=== PATIENT | female | born 1995 | race Caucasian/White ===

== ENCOUNTER → 2018-06-20 | Outpatient (CLI) | payer BC ==
--- NOTE | 2018-06-20 13:51 | RAD ---
ABDOMEN LTD dated 06/21/2018 1:02 AM. Comparison: None Clinical Indication: RUQ PAIN, NAUSEA . Findings: The liver is homogeneous in echotexture with no evidence of focal hepatic mass. Intrahepatic and extra hepatic biliary ducts are normal in caliber. The common bile duct measures 2 mm. The gallbladder is normal in size and echogenicity without gallbladder wall thickening or pericholecystic fluid. No gallstones are seen. The right kidney measures 9.2 cm in length. No hydronephrosis. Left kidney was not imaged Limited visualized portions of the pancreas, aorta and IVC are unremarkable. No significant ascites. IMPRESSION: Negative right upper quadrant ultrasound. Electronically signed by: Luis Felipe Ramirez MD (06/20/2018 1:48 PM) [id number]
== END | disposition home or self-care (01) ==
LOC: US 12:39
PROVIDERS: ATTEND Nurse Practitioner Family
DX: R10.11 Right upper quadrant pain (principal); R11.0 Nausea
CPT/HCPCS: 76705

== ENCOUNTER → 2019-03-27 | Outpatient (CLI) | payer BC ==
--- NOTE | 2019-03-27 16:09 | RAD ---
2 view abdominal series and PA view chest x-ray Clinical indications: Abdominal pain. FINDINGS: No obstructive bowel pattern is evident. No free intraperitoneal air is seen. No air-fluid levels are seen. Mild fecal retention is seen throughout the colon. The osseous structures are intact. Chest x-ray demonstrates no acute lung infiltrate or pleural effusion or pulmonary edema or pneumothorax. The heart size and pulmonary vasculature and mediastinum and both ady are unremarkable. IMPRESSION: No acute radiographic abnormality is evident. Electronically signed by: Asad Kelly MD (03/27/2019 4:06 PM) [place] [id number]
== END | disposition home or self-care (01) ==
LOC: PMG 09:02
PROVIDERS: ATTEND Physician Assistant
DX: K56.41 Fecal impaction (principal)
CPT/HCPCS: 74022